=== PATIENT | male | born 2000 | race Two or more races ===

== ENCOUNTER 2019-07-17 21:28 | Emergency (ER) | payer SELFPAY ==
[~2019-07-17] VITALS: Ht 175.3 cm; Wt 82.0 kg
[2019-07-17 21:30] VITALS: BP 131/75
== END 2019-07-17 23:17 | disposition left against medical advice (07) ==
LOC: ER 21:28
DX: R41.82 Altered mental status, unspecified (principal); Z53.21 Procedure and treatment not carried out due to patient leaving prior to being seen by health care provider